=== PATIENT | male | born 2000 | race American Indian/Alaskan Native ===

== ENCOUNTER 2020-06-14 11:17 | Emergency (ER) | payer SELFPAY | END 2020-06-14 11:19 | disposition left against medical advice (07) | LOC: ED 11:17 | DX: M79.646 Pain in unspecified finger(s) (principal); Z53.21 Procedure and treatment not carried out due to patient leaving prior to being seen by health care provider ==

== ENCOUNTER 2020-08-27 21:16 | Emergency (ER) | payer SELFPAY | END 2020-08-27 21:52 | disposition left against medical advice (07) | LOC: ED 21:16 | DX: M79.601 Pain in right arm (principal); Z53.21 Procedure and treatment not carried out due to patient leaving prior to being seen by health care provider ==

== ENCOUNTER 2021-05-20 07:32 | Emergency (ER) | payer SELFPAY ==
[2021-05-20] MEDS ORDERED: IPRATROPIUM/ALBUTEROL SULFATE 3 ML AMPUL.NEB IH ONE (08:35)
--- NOTE | 2021-05-20 08:48 | Emergency Department Report ---
ED General Adult HPI - General Chief complaint: Adult Asthma Stated complaint: DIFF BREATHING Time Seen by Provider: 05/20/21 08:02 Source: patient Mode of arrival: Ambulatory Limitations: No Limitations - History of Present Illness Initial comments: 21-year-old -[place] male patient presents with complaints of wheezing and chest tightness x4 days. He reports a history of asthma and states he ran out of his rescue inhaler. He denies any coughing, fever/chills/sweats, or chest pain. He does admit to intermittent smoking. Patient states this feels like his normal asthma exacerbation. Patient also denies any loss of taste or smell, nausea/vomiting/diarrhea, abdominal pain, or recent known sick contacts. No other past medical history per patient. - Related Data Previous Rx's Medication Instructions Recorded Last Taken Type Ibuprofen [Motrin] 600 mg PO Q8H PRN #30 tablet 01/02/15 Unknown Rx Sulfamethoxazole/Trimethoprim 1 each PO BID #14 tablet 01/02/15 Unknown Rx [Bactrim Ds] traMADoL [Ultram 50 MG tab] 50 mg PO Q6HR PRN #10 tablet 01/02/15 Unknown Rx Albuterol Mdi (or & Nicu Only) 2 puff IH QID PRN #8.5 gram 05/20/21 Unknown Rx [ProAir HFA Inhaler] predniSONE [Deltasone] 20 mg PO BID 3 Days #6 tab 05/20/21 Unknown Rx Allergies Allergy/AdvReac Type Severity Reaction Status Date / Time No Known Allergies Allergy Verified 01/01/15 22:46 ED Review of Systems ROS: Stated complaint: DIFF BREATHING Other details as noted in HPI Constitutional: denies: chills, diaphoresis, fever, malaise, weakness ENT: denies: throat pain Respiratory: wheezing. denies: cough, shortness of breath Cardiovascular: denies: chest pain Gastrointestinal: denies: abdominal pain, nausea, vomiting ED Past Medical Hx - Past Medical History Previous Medical History?: Yes Hx Asthma: Yes - Social History Smoking Status: Never Smoker Substance Use Type: Marijuana - Medications Home Medications: Home Medications Medication Instructions Recorded Confirmed Last Taken Type Ibuprofen [Motrin] 600 mg PO Q8H PRN #30 tablet 01/02/15 Unknown Rx Sulfamethoxazole/Trimethoprim 1 each PO BID #14 tablet 01/02/15 Unknown Rx [Bactrim Ds] traMADoL [Ultram 50 MG tab] 50 mg PO Q6HR PRN #10 tablet 01/02/15 Unknown Rx Albuterol Mdi (or & Nicu Only) 2 puff IH QID PRN #8.5 gram 05/20/21 Unknown Rx [ProAir HFA Inhaler] predniSONE [Deltasone] 20 mg PO BID 3 Days #6 tab 05/20/21 Unknown Rx ED Physical Exam - General Limitations: No Limitations General appearance: alert, in no apparent distress - Head Head exam: Present: atraumatic, normocephalic - Eye Eye exam: Present: normal appearance - Neck Neck exam: Present: normal inspection - Respiratory Respiratory exam: Present: wheezes (Mild bilateral diffuse). Absent: respiratory distress, rales, rhonchi, stridor, accessory muscle use - Cardiovascular Cardiovascular Exam: Present: regular rate, normal rhythm - Neurological Exam Neurological exam: Present: alert, oriented X3 - Psychiatric Psychiatric exam: Present: normal affect, normal mood - Skin Skin exam: Present: warm, dry, intact, normal color. Absent: rash ED Course Vital Signs 05/20/21 05/20/21 05/20/21 07:59 09:08 09:14 Temperature 98.6 F Pulse Rate 91 H Respiratory 16 16 Rate Respiratory 20 Rate [Posterior Bilateral] Blood Pressure 138/100 Blood Pressure 154/81 [Right] O2 Sat by Pulse 99 99 Oximetry ED Medical Decision Making - Medical Decision Making 21-year-old -[place] male patient presents with complaints of wheezing and chest tightness x4 days. He reports a history of asthma and states he ran out of his rescue inhaler. He denies any coughing, fever/chills/sweats, or chest pain. He does admit to intermittent smoking. Patient states this feels like his normal asthma exacerbation. Patient also denies any loss of taste or smell, nausea/vomiting/diarrhea, abdominal pain, or recent known sick contacts. No other past medical history per patient. Wheezing noted on exam. Patient given neb treatment here in ED. Wheezing has improved and patient states his chest tightness has resolved. He states he is feeling well. Vitals are within normal limits. Prescription for albuterol inhaler and prednisone given. Recommend follow-up with PCP in 3 to 5 days. Patient is stable for discharge home. Advised patient on discontinuation of smoking. Strict return precautions were discussed in detail with patient verbalized understanding. Critical care attestation.: If time is entered above; I have spent that time in minutes in the direct care of this critically ill patient, excluding procedure time. ED Disposition Clinical Impression: Mild intermittent asthma with exacerbation Disposition: - TO HOME OR SELFCARE Is pt being admited?: No Condition: Stable Instructions: Asthma, Adult Prescriptions: predniSONE [Deltasone] 20 mg PO BID 3 Days #6 tab Albuterol Mdi (or & Nicu Only) [ProAir HFA Inhaler] 2 puff IH QID PRN #8.5 gram PRN Reason: Shortness Of Breath Referrals: PRIMARY CARE, [Primary Care Provider] - 3-[address] [facility] [Provider Group] - 3-5 Days Forms: Work/School Release Form(ED) Time of Disposition: 09:01
[2021-05-20 09:15] VITALS: BP 154/81
== END 2021-05-20 09:14 | disposition home or self-care (01) ==
LOC: ED 07:32
DX: J45.901 Unspecified asthma with (acute) exacerbation (principal); F12.90 Cannabis use, unspecified, uncomplicated; Z79.899 Other long term (current) drug therapy
CPT/HCPCS: 94640; 94644; 99282